=== PATIENT | female | born 1970 | race Caucasian/White ===

== ENCOUNTER 2018-06-11 21:00 | Inpatient (IN) | payer MEDICAID ==
[2018-06-12] MEDS ORDERED: Potassium Chloride 20 MEQ Tab.ER PO ONE ×2 (00:12→03:15)
[2018-06-12] MEDS ORDERED: Sodium Chloride 0.9% 1,000 ML IV ONE (00:49)
[2018-06-12] MEDS ORDERED: Methadone 10 MG Tab PO ONE (01:57)
[2018-06-12] MEDS ORDERED: LORazepam 2 MG/ML SDV IVPUSH ONE (02:00)
[2018-06-12] MEDS ORDERED: Lidocaine 1% 10 ML MDV INJECT ONE (02:27)
[2018-06-12] MEDS ORDERED: hydrALAZINE 20 MG/ML SDV IVPUSH PRN (02:33)
[2018-06-12] MEDS ORDERED: Metoprolol Tartrate 5 MG/5 ML SDV IVPUSH PRN (02:33)
[2018-06-12] MEDS ORDERED: LORazepam 2 MG/ML SDV IVPUSH PRN ×3 (02:33→11:10)
[2018-06-12] MEDS ORDERED: Ondansetron 4 MG/2 ML SDV IV PRN (02:35)
[2018-06-12] MEDS ORDERED: Docusate Sodium 100 MG Cap PO PRN (02:35)
[2018-06-12] MEDS ORDERED: Albuterol/Ipratropium 3.0-0.5 MG/3 ML Neb Soln NEB PRN (02:35)
[2018-06-12] MEDS ORDERED: Bisacodyl 5 MG Tab PO PRN (02:35)
[2018-06-12] MEDS ORDERED: Promethazine 6.25 MG in Sodium Chloride 0.9% 50 ML IV PRN (02:35)
[2018-06-12] MEDS ORDERED: Ibuprofen 600 MG Tab PO PRN (02:35)
[2018-06-12] MEDS ORDERED: Polyethylene Glycol 3350 Powder 17 GM Packet PO PRN (02:35)
[2018-06-12] MEDS ORDERED: QUEtiapine 25 MG Tab PO ONE (02:41)
[2018-06-12] MEDS ORDERED: chlordiazePOXIDE 25 MG Cap PO PRN (02:42)
[2018-06-12] MEDS ORDERED: Thiamine 100 MG in Sodium Chloride 0.9% 50 ML IV ONE (02:42)
[2018-06-12] MEDS ORDERED: cloNIDine 0.1 MG Tab PO PRN (02:42)
[2018-06-12] MEDS ORDERED: Topiramate 25 MG Tab PO ONE (02:42)
[2018-06-12] MEDS ORDERED: Haloperidol Lactate 5 MG/ML SDV IM PRN (02:42)
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
[2018-06-12] MEDS ORDERED: Thiamine 100 MG in Sodium Chloride 0.9% 100 ML IV ONE (03:30)
[2018-06-12 03:58] LABS: HEMOGLOBIN A1C 5.1 % (4.50-6.20)
[2018-06-12] MEDS: Sodium Chloride 0.9% 1,000 ML IV SCH ×3 (04:42→18:55)
[2018-06-12] MEDS: oxyCODONE 5 MG Tab PO PRN ×5 (05:10→22:32)
[2018-06-12] MEDS: Nicotine 21 MG/24 Hr Patch TRDERM PRN (05:38)
[2018-06-12] MEDS: Potassium Chloride 20 MEQ Tab.ER PO SCH ×2 (06:16→11:28)
[2018-06-12] MEDS: HYDROmorphone 1 MG/ML Syringe IVPUSH PRN ×2 (06:16→08:05)
[2018-06-12] MEDS: Thiamine 100 MG Tab PO SCH (08:04)
[2018-06-12] MEDS: Multivitamins,Therapeutic Tab PO SCH (08:04)
[2018-06-12] MEDS: Pantoprazole 40 MG Vial IV SCH (08:04)
[2018-06-12] MEDS: Folic Acid 1 MG Tab PO SCH (08:05)
[2018-06-12] MEDS ORDERED: Topiramate 25 MG Tab PO SCH (09:00)
[2018-06-12] MEDS ORDERED: Methadone 10 MG Tab PO SCH (09:00)
--- NOTE | 2018-06-12 09:07 | PCM.SN ---
- Free Text/Narrative Note: Patient briefly seen and examined at bedside. She rested fairly good and looks way better this morning. She is no longer in position and sobbing in pain. In fact, she is sitting up right in bed, comfortable and smiling. She has no acute complaints. However she did ask if we were going to treat her abdominal skin lesions and I answered, yes. I informed her, PT/OT specialists will come and see her tomorrow for wound care eval.
[2018-06-12] MEDS ORDERED: cloNIDine 0.3 MG/Day Transdermal Patch TRDERM ONE (11:25)
--- NOTE | 2018-06-12 13:21 | CT ---
CT cervical spine Technique: Multiple axial sections were obtained from above the C1 level inferiorly to the mid to inferior T2 level. Reconstructed sagittal and coronal images were reviewed. Comparison: No prior cervical spine imaging. Findings: Severe disc space narrowing is noted at C6-7 with anterior and posterior osteophytes. Mild disc space narrowing noted at C3-4, C4-5, C5-6 and C7-T1. Nonunited posterior arch of C1 is seen which is a normal variant. Scattered degenerative apophyseal change is noted throughout the cervical spine. No fracture is seen. No abnormal subluxation is seen. Moderate right sided neural foraminal stenosis is noted at C3-4 with mild left-sided neural foraminal stenosis at C3-4. Moderate left-sided neural foraminal stenosis is noted at C4-5. Mild bilateral neural foraminal stenosis is noted at C6-7. Other neural foramina are felt to be fairly well patent. No bony central canal stenosis is seen. Impression: 1. Diffuse degenerative change. Nothing acute is appreciated on CT study of the cervical spine. Diagnostic code #2
--- NOTE | 2018-06-12 13:25 | CT ---
CT lumbar spine Technique: Multiple axial sections through the lumbar spine were obtained. Reconstructed coronal and sagittal images were reviewed. Comparison: No previous lumbar spine imaging. Findings: Vertebral body heights are maintained. Mild posterior disc space narrowing is noted at L4-5. Minimal spondylolisthesis is noted at L4-5 due to severe degenerative apophyseal change. Other apophyseal joints shows mild diffuse degenerative change. No fracture is identified. Mild diffuse posterior disc bulge is noted at L4-5 causing mild central canal stenosis. No focal disc herniation is appreciated. Impression: 1. Degenerative change as noted above most severe at L4-5. 2. Nothing acute is seen. Diagnostic code #2
--- NOTE | 2018-06-12 13:28 | CT ---
CT thoracic spine Technique: Multiple axial sections through the thoracic spine were obtained. Reconstructed coronal and sagittal images were reviewed. Comparison: No prior thoracic spine imaging. Findings: Mild scattered disc space narrowing is noted within the thoracic spine with mild scattered anterior endplate osteophytes. Mild degenerative apophyseal change is seen mostly within the upper thoracic spine. No abnormal posterior spurring is seen. No fracture is seen. No abnormal subluxation is noted. No central canal stenosis is seen. Mild neural foraminal narrowing is seen within several levels of the upper thoracic spine on the left side. Impression: 1. Degenerative change as noted above. Nothing acute is appreciated. Diagnostic code #2
[2018-06-12] MEDS ORDERED: DULoxetine 30 MG Cap PO ONE (14:44)
[2018-06-12] MEDS: LORazepam 1 MG Tab PO SCH ×2 (14:56→20:30)
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
[2018-06-12] MEDS: Gabapentin 300 MG Cap PO SCH (20:29)
[2018-06-12] MEDS: Cyclobenzaprine 10 MG Tab PO SCH (20:30)
[2018-06-12] MEDS: Famotidine 20 MG Tab PO SCH (20:30)
[2018-06-12] MEDS: cloNIDine 0.1 MG Tab PO SCH (20:30)
[2018-06-12] MEDS: QUEtiapine 25 MG Tab PO SCH (20:30)
[2018-06-12] MEDS ORDERED: diphenhydrAMINE 50 MG/ML SDV IVPUSH ONE (21:30)
[2018-06-13] MEDS: Sodium Chloride 0.9% 1,000 ML IV SCH (00:56)
[2018-06-13] MEDS ORDERED: Sodium Chloride 0.9% 1,000 ML IV SCH (01:00)
[2018-06-13] MEDS: Levothyroxine 100 MCG Tab PO SCH (06:36)
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
--- NOTE | 2018-06-13 08:39 | CR ---
Abdominal series: Supine and upright views of the abdomen were obtained as well as frontal view of the chest. Comparison: No prior chest x-ray or abdominal x-ray. Degenerative change is noted within the left shoulder. Scoliosis is noted within the spine. Heart size and mediastinum are normal. Lungs are clear. Bowel gas pattern is normal. Single surgical clip is seen within the left pelvis. No free air is seen. No abnormal calcifications are appreciated. Impression: 1. Nothing acute is appreciated on abdominal series. Incidental findings as noted above. Diagnostic code #2
[2018-06-13] MEDS ORDERED: Furosemide 20 MG/2 ML VIAL IVPUSH ONE (09:05)
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
[2018-06-13] MEDS: Pantoprazole 40 MG Vial IV SCH (09:25)
[2018-06-13] MEDS: LORazepam 1 MG Tab PO SCH ×2 (09:33→20:19)
[2018-06-13] MEDS: DULoxetine 30 MG Cap PO SCH (09:33)
[2018-06-13] MEDS: Folic Acid 1 MG Tab PO SCH (09:33)
[2018-06-13] MEDS: Famotidine 20 MG Tab PO SCH ×2 (09:33→20:17)
[2018-06-13] MEDS: Thiamine 100 MG Tab PO SCH (09:33)
[2018-06-13] MEDS: Cyclobenzaprine 10 MG Tab PO SCH ×2 (09:34→20:17)
[2018-06-13] MEDS: Gabapentin 300 MG Cap PO SCH ×2 (09:34→20:17)
[2018-06-13] MEDS: Multivitamins,Therapeutic Tab PO SCH (09:34)
[2018-06-13] MEDS: cloNIDine 0.1 MG Tab PO SCH (09:34)
[2018-06-13] MEDS: Nicotine 21 MG/24 Hr Patch TRDERM PRN (09:52)
[2018-06-13] MEDS: oxyCODONE 5 MG Tab PO PRN ×3 (11:45→20:18)
[2018-06-13] MEDS: QUEtiapine 25 MG Tab PO SCH (20:18)
[2018-06-14] MEDS: Levothyroxine 100 MCG Tab PO SCH (06:17)
--- NOTE | 2018-06-14 07:10 | ER ---
ADDENDUM: IMPRESSION: 1. Suicide attempt. 2. Acute opiate withdrawal. MMODAL /[id number]
[2018-06-14] MEDS: DULoxetine 30 MG Cap PO SCH (08:12)
[2018-06-14] MEDS: LORazepam 1 MG Tab PO SCH (08:12)
[2018-06-14] MEDS: Folic Acid 1 MG Tab PO SCH (08:13)
[2018-06-14] MEDS: Gabapentin 300 MG Cap PO SCH (08:13)
[2018-06-14] MEDS: Multivitamins,Therapeutic Tab PO SCH (08:13)
[2018-06-14] MEDS: Famotidine 20 MG Tab PO SCH (08:13)
[2018-06-14] MEDS: Cyclobenzaprine 10 MG Tab PO SCH (08:13)
[2018-06-14] MEDS: Thiamine 100 MG Tab PO SCH (08:13)
[2018-06-14] MEDS: Nicotine 21 MG/24 Hr Patch TRDERM PRN (08:18)
[2018-06-14] MEDS ORDERED: Folic Acid 1 MG Tab PO ONE (09:09)
[2018-06-14] MEDS ORDERED: Cyanocobalamin (Vitamin B12) 1,000 MCG Tab PO SCH (09:15)
[2018-06-14] MEDS: oxyCODONE 5 MG Tab PO PRN ×2 (10:19→14:49)
[2018-06-14] MEDS: Potassium Chloride 20 MEQ Tab.ER PO SCH ×2 (10:19→13:46)
[2018-06-14] MEDS ORDERED: Iron Dextran Complex 100 MG in Sodium Chloride 0.9% 250 ML IV ONE (10:29)
[2018-06-14] MEDS ORDERED: Dexamethasone 4 MG Tab PO ONE (10:31)
[2018-06-14] MEDS ORDERED: SODIUM CHLORIDE 0.9% IV ONE (10:32)
[2018-06-14] MEDS ORDERED: IRON DEXTRAN COMPLEX IV ONE (10:32)
[2018-06-14] MEDS ORDERED: Loratadine 10 MG Tab PO ONE (11:30)
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
== END 2018-06-14 15:35 | disposition home or self-care (01) | DRG 988 ==
LOC: JD.ED 21:00 → JD.ICU 06-12 02:30
PROVIDERS: ADMIT Internal Medicine; ATTEND Internal Medicine
PROC: 0JQH0ZZ Repair Left Lower Arm Subcutaneous Tissue and Fascia, Open Approach (ICD-10-PCS; principal; 2018-06-12)
PROC: 0JQG0ZZ Repair Right Lower Arm Subcutaneous Tissue and Fascia, Open Approach (ICD-10-PCS; 2018-06-12)
DX: F11.23 Opioid dependence with withdrawal (principal); N17.9 Acute kidney failure, unspecified; R45.851 Suicidal ideations; S31.119A Laceration without foreign body of abdominal wall, unspecified quadrant without penetration into peritoneal cavity, initial encounter; S51.812A Laceration without foreign body of left forearm, initial encounter; S51.811A Laceration without foreign body of right forearm, initial encounter; S61.512A Laceration without foreign body of left wrist, initial encounter; S61.511A Laceration without foreign body of right wrist, initial encounter; X78.1XXA Intentional self-harm by knife, initial encounter; F41.9 Anxiety disorder, unspecified; F43.10 Post-traumatic stress disorder, unspecified; M54.30 Sciatica, unspecified side; M48.03 Spinal stenosis, cervicothoracic region; M51.26 Other intervertebral disc displacement, lumbar region; E87.6 Hypokalemia; G89.4 Chronic pain syndrome; N92.0 Excessive and frequent menstruation with regular cycle; F17.210 Nicotine dependence, cigarettes, uncomplicated; F31.9 Bipolar disorder, unspecified; E03.9 Hypothyroidism, unspecified; Z79.899 Other long term (current) drug therapy; Z91.410 Personal history of adult physical and sexual abuse; Z79.890 Hormone replacement therapy; Z88.0 Allergy status to penicillin
CPT/HCPCS: 12004; 12005; 36415; 72125; 72125-26; 72128; 72128-26; 72131; 72131-26; 74022; 74022-26; 80048; 80053; 80306; 81025; 83036; 83540; 83735; 84439; 84443; 84466; 85007; 85014; 85018; 85025; 85027; 93005; 96361; 96374; 97110-GP; 97116-GP; 97161-GP; 99284; 99285-25; A9270-GY; C9113; G0480; J1170; J1200; J2001; J2060; J2916; J3411; J7030; J7040; J8540

== ENCOUNTER 2018-08-16 13:04 | Emergency (ER) | payer MEDICAID ==
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
[2018-08-16] MEDS ORDERED: LORazepam 0.5 MG Tab PO ONE (14:08)
[2018-08-16] MEDS ORDERED: Ketorolac 30 MG/ML SDV IM ONE (14:09)
== END 2018-08-16 16:45 | disposition home or self-care (01) ==
LOC: JD.ED 13:04 → SUPCPDRO 13:04 → JD.ED 16:45
DX: M54.5 Low back pain (principal); G89.29 Other chronic pain; F41.9 Anxiety disorder, unspecified; F32.9 Major depressive disorder, single episode, unspecified; E03.9 Hypothyroidism, unspecified; E66.9 Obesity, unspecified; J45.909 Unspecified asthma, uncomplicated; F17.210 Nicotine dependence, cigarettes, uncomplicated; Z79.899 Other long term (current) drug therapy; Z88.0 Allergy status to penicillin
CPT/HCPCS: 36415; 80053; 80306; 81001; 85007; 85027; 96372; 99284; A9270; J1885; 99283